=== PATIENT | male | born 1985 | race American Indian/Alaskan Native ===

== ENCOUNTER 2021-03-21 12:10 | Emergency (ER) | payer SELFPAY ==
[2021-03-21 12:31] VITALS: BP 106/70
--- NOTE | 2021-03-21 12:43 | Emergency Department Report ---
ED Back Pain/Injury HPI - General Chief Complaint: Back Pain/Injury Stated Complaint: SEVERE BK PAIN Time Seen by Provider: 03/21/21 12:32 Source: patient Mode of arrival: Ambulatory Limitations: No Limitations - History of Present Illness Initial Comments: Patient presented with a 1 to 2-day history of back pain. He had been playing basketball. He states that he took a step and then just collapsed. He was complaining of lower back pain. He states that it took him 4 hours to get up. He laid around all day yesterday. Today, he decided to come to the hospital. Pain is at the waist area. It is bilateral. The pain does not radiate or migrate. It is worsened and aggravated by movement and standing. When he rests and sits still, the pain improves. He denies paresthesias. There is no incontinence of bowel or bladder. No fevers or chills. There is no abdominal pain. Again, he has no direct trauma. - Related Data Previous Rx's Medication Instructions Recorded Last Taken Type Ibuprofen [Motrin 600 MG tab] 600 mg PO Q8H PRN #20 tablet 03/21/21 Unknown Rx methOCARBAMOL [Robaxin TAB] 500 mg PO BID #10 tab 03/21/21 Unknown Rx Allergies Allergy/AdvReac Type Severity Reaction Status Date / Time No Known Allergies Allergy Unverified 03/21/21 12:28 ED Review of Systems ROS: Stated complaint: SEVERE BK PAIN Other details as noted in HPI Comment: All other systems reviewed and negative Constitutional: denies: fever Eyes: denies: eye pain ENT: denies: throat pain Respiratory: denies: cough Cardiovascular: denies: chest pain Endocrine: denies: increased thirst, increased urine Gastrointestinal: denies: abdominal pain Genitourinary: denies: dysuria Musculoskeletal: as per HPI Skin: denies: rash Neurological: denies: weakness, numbness, paresthesias Hematological/Lymphatic: denies: swollen glands ED Past Medical Hx - Past Medical History Previous Medical History?: No - Surgical History Past Surgical History?: No - Medications Home Medications: Home Medications Medication Instructions Recorded Confirmed Last Taken Type Ibuprofen [Motrin 600 MG tab] 600 mg PO Q8H PRN #20 tablet 03/21/21 Unknown Rx methOCARBAMOL [Robaxin TAB] 500 mg PO BID #10 tab 09/03/21 Unknown Rx ED Physical Exam - General Limitations: No Limitations General appearance: alert, in no apparent distress - Head Head exam: Present: atraumatic, normocephalic - Eye Eye exam: Present: normal appearance. Absent: scleral icterus - ENT ENT exam: Present: normal exam - Neck Neck exam: Present: normal inspection, full ROM. Absent: meningismus - Respiratory Respiratory exam: Present: normal lung sounds bilaterally. Absent: respiratory distress - Cardiovascular Cardiovascular Exam: Present: regular rate, normal rhythm - GI/Abdominal GI/Abdominal exam: Present: soft. Absent: distended, tenderness - Extremities Exam Extremities exam: Present: normal inspection, full ROM. Absent: tenderness, pedal edema - Back Exam Back exam: Present: normal inspection, muscle spasm (Patient has diffuse paraspinous muscular tenderness in the waistline area. There is no midline tenderness, step-off, or deformity. Patient has negative straight leg raise.), paraspinal tenderness. Absent: CVA tenderness (R), CVA tenderness (L), vertebral tenderness - Neurological Exam Neurological exam: Present: alert, altered, oriented X3, normal gait, reflexes normal. Absent: motor sensory deficit - Psychiatric Psychiatric exam: Present: normal affect, normal mood - Skin Skin exam: Present: warm, dry ED Course Vital Signs 03/21/21 12:28 Temperature 98.3 F Pulse Rate 79 Respiratory 18 Rate Blood Pressure 106/70 O2 Sat by Pulse 100 Oximetry - Reevaluation(s) Reevaluation #1: 03/21/21 12:45 Patient was seen and released. ED Medical Decision Making - Medical Decision Making Patient presents secondary to back pain this was nontraumatic. He has no trauma there would suggest acute fracture. He certainly does not have neurologic symptom or deficit. I am not concerned for cord injury or cauda equina. Patient has no history of fever or drug use. He does not have any neurologic deficit at this time. I do not believe this represents epidural abscess. Patient has paraspinous tenderness without midline tenderness. I do not believe imaging would be necessary at this time. He was treated symptomatically and referred for outpatient evaluation and follow-up. Critical Care Time: No Critical care attestation.: If time is entered above; I have spent that time in minutes in the direct care of this critically ill patient, excluding procedure time. ED Disposition Clinical Impression: Lumbosacral strain Qualifiers: Encounter type: initial encounter Qualified Code(s): S39.012A - Strain of muscle, fascia and tendon of lower back, initial encounter Disposition: HOME / SELF CARE / HOMELESS Is pt being admited?: No Does the pt Need Aspirin: No Condition: Stable Instructions: Muscle Strain, [id number], Lumbosacral Strain, How to Use Cold Therapy, [id number], Back Injury Prevention, [id number] Additional Instructions: Alternate with ice and heat. Limit lifting. Return for problems. Follow-up with your regular physician for recheck and further management. Prescriptions: Ibuprofen [Motrin 600 MG tab] 600 mg PO Q8H PRN #20 tablet PRN Reason: Pain methOCARBAMOL [Robaxin TAB] 500 mg PO BID #10 tab
== END 2021-03-21 13:30 | disposition home or self-care (01) ==
LOC: ED 12:10
DX: S39.012A Strain of muscle, fascia and tendon of lower back, initial encounter (principal); Z79.899 Other long term (current) drug therapy; X58.XXXA Exposure to other specified factors, initial encounter; Y93.67 Activity, basketball; Y92.89 Other specified places as the place of occurrence of the external cause; Y99.8 Other external cause status
CPT/HCPCS: 99281